=== PATIENT | male | born 1975 | race Caucasian/White ===

== ENCOUNTER 2022-09-22 21:56 | Inpatient (IN) | payer SELFPAY ==
[~2022-09-22] VITALS: Ht 172.7 cm; Wt 79.1 kg
[2022-09-22 22:22] LABS: MEAN CORPUSCULAR HEMOGLOBIN 31.5 PG (27.0-31.0); MEAN PLATELET VOLUME 7.7 FL (7.4-10.4)
[2022-09-22 22:24] LABS: BASOPHILS % (AUTO) 0.2 % (0-1); EOSINOPHILS % (AUTO) 0.3 % (0-6); HEMATOCRIT 45.6 % (42.0-52.0); HEMOGLOBIN 15.3 g/dl (14.0-17.9); LYMPHOCYTES % (AUTO) 12.1 % (21-51); MEAN CORPUSCULAR HGB CONC 33.6 g/dL (33.0-36.5); MEAN CORPUSCULAR VOLUME 93.7 FL (78-98); MONOCYTES # (AUTO) 2.2 X10'3 (0-0.9); MONOCYTES % (AUTO) 13.3 % (2-12); NEUTROPHILS # (AUTO) 12.4 X10'3 (1.8-7.7); NEUTROPHILS % (AUTO) 74.1 % (42-75); PLATELET COUNT 305 X10'3 (140-440); RED BLOOD COUNT 4.86 X10'6 (4.70-6.10); RED CELL DISTRIBUTION WIDTH 14.4 % (11.5-14.5); WHITE BLOOD COUNT 16.7 X10'3 (4.5-11.0)
[2022-09-22 22:36] LABS: ALANINE AMINOTRANSFERASE 33 U/L (12-78); ALBUMIN 4.5 G/DL (3.4-5.0); ALBUMIN/GLOBULIN RATIO 1.5 (1.1-1.5); ALKALINE PHOSPHATASE 86 IU/L (46-116); ANION GAP 19 (8-16); ASPARTATE AMINO TRANSFERASE 93 U/L (10-37); BILIRUBIN,TOTAL 0.8 MG/DL (0.1-1.0); BLOOD UREA NITROGEN 17 MG/DL (7-18); BUN/CREATININE RATIO 7.1 (10.0-20.0); CALCIUM 9.2 MG/DL (8.5-10.1); CHLORIDE 98 MMOL/L (99-107); CREATININE 2.41 MG/DL (0.60-1.10); GLUCOSE 102 MG/DL (70-104); POTASSIUM 3.9 MMOL/L (3.5-5.1); SODIUM 138 MMOL/L (135-145); TOTAL CARBON DIOXIDE 21.4 MMOL/L (24-32); TOTAL PROTEIN 7.5 G/DL (6.4-8.2); eGFR 29 ML/MIN
[2022-09-22] MEDS ORDERED: normal saline 1000ML IV soln IVB ONE (23:55)
[2022-09-23] MEDS ORDERED: aspirin 325mg tablet PO ONE
[2022-09-23 00:46] LABS: APTT 29 SECONDS (22-32)
[2022-09-23 00:54] LABS: MAGNESIUM 1.5 MG/DL (1.5-2.4)
[2022-09-23 00:55] LABS: CREATINE KINASE 5395 U/L (39-308)
[2022-09-23] MEDS ORDERED: normal saline 1000ML IV soln IVB ONE (01:30)
[2022-09-23] MEDS ORDERED: sodium bicarbonate (8.4%) 1 mEq/ml syringe IV ONE (01:30)
[2022-09-23] MEDS ORDERED: NO HOME MEDS (01:35)
[2022-09-23] MEDS ORDERED: sodium bicarbonate (8.4%) inj. 1 MEQ/ML ML IV ONE (02:00)
[2022-09-23] MEDS ORDERED: ondansetron/PF 4mg/2ml inj IV PRN (02:15)
[2022-09-23] MEDS ORDERED: acetaminophen 325mg tablet PO PRN (02:15)
[2022-09-23] MEDS ORDERED: magnesium hydroxide 30ml (MOM) UD suspension PO PRN (02:15)
[2022-09-23] MEDS ORDERED: mag hydrox/Alum hydrox/simeth 30ml oral suspension PO PRN (02:15)
[2022-09-23] MEDS ORDERED: SODIUM BICARB 150mEq/D5W 1L 1,000 ML IV SCH (02:30)
[2022-09-23 02:33] LABS: PHOSPHORUS 4.5 MG/DL (2.3-4.5)
[2022-09-23] MEDS: [UNRECOGNIZED DRUG - OTHER] IV SCH ×2 (03:53→16:36)
[2022-09-23] MEDS: SODIUM BICARB IV SCH ×2 (03:53→16:36)
[2022-09-23] MEDS: SODIUM BICARBONATE IV SCH ×2 (03:53→16:36)
[2022-09-23] MEDS ORDERED: normal saline 1000ml 1,000 ML IV ONE (03:55)
[2022-09-23 04:51] LABS: CLARITY,URINE CLEAR (Clear); COLOR,URINE YELLOW (Yellow); GLUCOSE, URINE NEGATIVE (Neg); KETONES,URINE 15 mg/dl (Neg); LEUKOCYTE ESTERASE ,URINE NEGATIVE (Neg); NITRITES, URINE NEGATIVE (Neg); OCCULT BLOOD,URINE NEGATIVE (Neg); PH,URINE 5.5 (4.8-8.0); PROTEIN,URINE TRACE mg/dl (Neg); UROBILINOGEN,URINE 0.2 E.U/dL (0.2-1.0)
[2022-09-23 04:57] LABS: UA COLLECTION TYPE CLN CATCH MIDSTREAM
[2022-09-23 04:58] LABS: HYALINE CASTS >30 /LPF (NEGATIVE)
[2022-09-23 04:59] LABS: CELLULAR CAST 0-4 /LPF (NEGATIVE); COARSE GRANULAR CAST 0-3 /LPF (NEGATIVE); MUCUS STRANDS MODERATE /LPF (Neg); SQUAMOUS EPITHELIAL CELL,UR FEW /LPF (FEW)
[2022-09-23 05:00] LABS: BACTERIA,URINE FEW /HPF (Neg); RBC,URINE 0-2 /HPF (0-2); TRANSITIONAL EPI CELLS,URINE FEW /HPF
--- NOTE | 2022-09-23 06:55 | NUR ---
RN ATTEMPTED TO CALL REPORT AND FLOOR RN IS STILL GETTING REPORT AND WILL CALL BACK FOR REPORT.
--- NOTE | 2022-09-23 07:19 | NUR ---
PAULINAAR TO JOVANA RANDOLPH. THIS RN WILL GO FOR BREAK AND CALL REPORT ONCE RTN.
--- NOTE | 2022-09-23 08:14 | NUR ---
Admitted to PCU nursing floor, Ambulatory, Alert, with intact IV access.
[2022-09-23 08:24] VITALS: BP 118/75
[2022-09-23] MEDS: docusate sod 100mg capsule PO SCH ×2 (10:02→20:00)
[2022-09-23] MEDS: HYDROcodone/acetaminophen 5mg/325mg tablet PO PRN ×2 (10:02→20:08)
[2022-09-23] MEDS: heparin, porcine 5000 units/ml vial SQ SCH ×2 (10:03→20:14)
[2022-09-23 10:21] LABS: BASOPHILS # (AUTO) 0.1 X10'3 (0-0.2); BASOPHILS % (AUTO) 0.7 % (0-1); EOSINOPHILS # (AUTO) 0.1 X10'3 (0-0.9); EOSINOPHILS % (AUTO) 1.6 % (0-6); HEMOGLOBIN 12.7 g/dl (14.0-17.9); LYMPHOCYTES # (AUTO) 2.4 X10'3 (1.1-4.8); LYMPHOCYTES % (AUTO) 27.9 % (21-51); MEAN CORPUSCULAR HEMOGLOBIN 31.5 PG (27.0-31.0); MEAN CORPUSCULAR HGB CONC 33.3 g/dL (33.0-36.5); MEAN CORPUSCULAR VOLUME 94.4 FL (78-98); MEAN PLATELET VOLUME 7.4 FL (7.4-10.4); MONOCYTES # (AUTO) 1.3 X10'3 (0-0.9); MONOCYTES % (AUTO) 14.9 % (2-12); NEUTROPHILS # (AUTO) 4.8 X10'3 (1.8-7.7); NEUTROPHILS % (AUTO) 54.9 % (42-75); PLATELET COUNT 242 X10'3 (140-440); RED BLOOD COUNT 4.02 X10'6 (4.70-6.10); RED CELL DISTRIBUTION WIDTH 14.3 % (11.5-14.5); WHITE BLOOD COUNT 8.7 X10'3 (4.5-11.0)
[2022-09-23 10:34] LABS: ALANINE AMINOTRANSFERASE 44 U/L (12-78); ALBUMIN 3.1 G/DL (3.4-5.0); ALBUMIN/GLOBULIN RATIO 1.3 (1.1-1.5); ALKALINE PHOSPHATASE 59 IU/L (46-116); ANION GAP 7 (8-16); ASPARTATE AMINO TRANSFERASE 155 U/L (10-37); BILIRUBIN,TOTAL 0.8 MG/DL (0.1-1.0); BLOOD UREA NITROGEN 13 MG/DL (7-18); BUN/CREATININE RATIO 10.4 (10.0-20.0); CALCIUM 7.7 MG/DL (8.5-10.1); CHLORIDE 108 MMOL/L (99-107); CREATININE 1.25 MG/DL (0.60-1.10); GLUCOSE 118 MG/DL (70-104); POTASSIUM 3.4 MMOL/L (3.5-5.1); SODIUM 142 MMOL/L (135-145); TOTAL PROTEIN 5.4 G/DL (6.4-8.2); eGFR 62 ML/MIN
[2022-09-23 11:00] VITALS: BP 118/80
[2022-09-23 11:15] LABS: CREATINE KINASE 6499 U/L (39-308)
--- NOTE | 2022-09-23 15:31 | NUR ---
Maura Kwong. visited to inform of possible suicidal ideation and a note that was left to inform he was not coming home and He was sorry. Call to Hospitalist with information on metal state, and history of bi-polar on medication for only one month before he discontinued the medication. Seen in the past at [facility] on [address].
--- NOTE | 2022-09-23 16:01 | NUR ---
[employer] is informed of mental health issue.
[2022-09-23] MEDS: nicotine 21mg patch - 24 hr TD SCH (16:36)
[2022-09-23 18:00] VITALS: BP 134/87
--- NOTE | 2022-09-23 18:42 | NUR ---
Patient in room PCU 3023. I have received report from TOMASA ZAMBRANO and had the opportunity to ask questions and assume patient care.
[2022-09-23 21:11] LABS: ALBUMIN 3.3 G/DL (3.4-5.0); ANION GAP 8 (8-16); BLOOD UREA NITROGEN 11 MG/DL (7-18); CALCIUM 8.3 MG/DL (8.5-10.1); CHLORIDE 106 MMOL/L (99-107); GLUCOSE 119 MG/DL (70-104); MAGNESIUM 1.7 MG/DL (1.5-2.4); POTASSIUM 3.3 MMOL/L (3.5-5.1); SODIUM 142 MMOL/L (135-145); TOTAL CARBON DIOXIDE 28.3 MMOL/L (24-32); eGFR 72 ML/MIN
[2022-09-23 22:00] VITALS: BP 116/73
[2022-09-24 02:00] VITALS: BP 126/71
[2022-09-24] MEDS: SODIUM BICARBONATE IV SCH (05:07)
[2022-09-24] MEDS: [UNRECOGNIZED DRUG - OTHER] IV SCH (05:07)
[2022-09-24] MEDS: SODIUM BICARB IV SCH (05:07)
[2022-09-24 06:00] VITALS: BP 104/64
--- NOTE | 2022-09-24 06:15 | NUR ---
Problems reprioritized. Patient report given, questions answered & plan of care reviewed with TOMASA Machado.
[2022-09-24 06:21] LABS: BASOPHILS # (AUTO) 0.1 X10'3 (0-0.2); BASOPHILS % (AUTO) 1.1 % (0-1); EOSINOPHILS # (AUTO) 0.2 X10'3 (0-0.9); EOSINOPHILS % (AUTO) 2.4 % (0-6); HEMATOCRIT 38.2 % (42.0-52.0); HEMOGLOBIN 12.6 g/dl (14.0-17.9); LYMPHOCYTES # (AUTO) 2.6 X10'3 (1.1-4.8); LYMPHOCYTES % (AUTO) 37.1 % (21-51); MEAN CORPUSCULAR HEMOGLOBIN 31.1 PG (27.0-31.0); MEAN CORPUSCULAR VOLUME 94.3 FL (78-98); MEAN PLATELET VOLUME 7.7 FL (7.4-10.4); MONOCYTES # (AUTO) 0.8 X10'3 (0-0.9); MONOCYTES % (AUTO) 11.6 % (2-12); NEUTROPHILS # (AUTO) 3.3 X10'3 (1.8-7.7); NEUTROPHILS % (AUTO) 47.8 % (42-75); PLATELET COUNT 233 X10'3 (140-440); RED BLOOD COUNT 4.06 X10'6 (4.70-6.10); RED CELL DISTRIBUTION WIDTH 14.7 % (11.5-14.5); WHITE BLOOD COUNT 6.9 X10'3 (4.5-11.0)
[2022-09-24 06:45] LABS: ALANINE AMINOTRANSFERASE 50 U/L (12-78); ALBUMIN/GLOBULIN RATIO 1.3 (1.1-1.5); ALKALINE PHOSPHATASE 59 IU/L (46-116); ANION GAP 7 (8-16); ASPARTATE AMINO TRANSFERASE 138 U/L (10-37); BILIRUBIN,TOTAL 0.5 MG/DL (0.1-1.0); BLOOD UREA NITROGEN 7 MG/DL (7-18); CALCIUM 8.3 MG/DL (8.5-10.1); CHLORIDE 106 MMOL/L (99-107); CREATININE 0.87 MG/DL (0.60-1.10); GLUCOSE 114 MG/DL (70-104); POTASSIUM 3.3 MMOL/L (3.5-5.1); SODIUM 142 MMOL/L (135-145); TOTAL CARBON DIOXIDE 29.3 MMOL/L (24-32); TOTAL PROTEIN 5.4 G/DL (6.4-8.2); eGFR > 90 ML/MIN
[2022-09-24] MEDS: nicotine 21mg patch - 24 hr TD SCH (08:07)
[2022-09-24] MEDS: docusate sod 100mg capsule PO SCH ×2 (08:08→19:32)
[2022-09-24] MEDS: heparin, porcine 5000 units/ml vial SQ SCH ×2 (08:09→19:33)
[2022-09-24] MEDS: HYDROcodone/acetaminophen 5mg/325mg tablet PO PRN ×2 (08:14→19:33)
[2022-09-24] MEDS ORDERED: potassium Cl 20 mEq SR tablet PO PRN (12:45)
[2022-09-24 13:13] VITALS: BP 130/85
[2022-09-24 15:00] VITALS: BP 133/79
--- NOTE | 2022-09-24 15:00 | NUR ---
Various messages to MD, and social service assistant from nursing. [facility] has called to report receipt of an incomplete packet missing tox screen, and medical release for Psych eval. Release is identified in MD notes take off worker is messaged regarding the incomplete items.
--- NOTE | 2022-09-24 17:28 | NUR ---
[facility] called: After receiving the packet and it is missing a tox screen, and Statement from the DR providing medical clearance.
[2022-09-24 18:00] VITALS: BP 133/88
[2022-09-24] MEDS: normal saline 1000ml 1,000 ML IV SCH ×2 (21:35→22:40)
[2022-09-24 22:00] VITALS: BP 137/80
[2022-09-25 00:13] LABS: URINE AMPHETAMINE SCREEN NEGATIVE (Neg); URINE BARBITUATE SCREEN NEGATIVE (Neg); URINE BENZODIAZEPINES SCREEN NEGATIVE (Neg); URINE CANNABINOID SCREEN POSITIVE (Neg); URINE COCAINE SCREEN NEGATIVE (Neg); URINE METHADONE SCREEN NEGATIVE (Neg); URINE OPIATE SCREEN NEGATIVE (Neg); URINE PHENCYCLIDINE SCREEN NEGATIVE (Neg)
[2022-09-25 02:00] VITALS: BP 128/73
[2022-09-25] MEDS: normal saline 1000ml 1,000 ML IV SCH ×2 (05:11→08:40)
--- NOTE | 2022-09-25 06:13 | NUR ---
Problems reprioritized. Patient report given, questions answered & plan of care reviewed with Jose RN and Robbie RN.
--- NOTE | 2022-09-25 06:30 | NUR ---
Patient in room PCU 3023. I have received report from Eusebia RANDOLPH and had the opportunity to ask questions and assume patient care.
[2022-09-25 06:37] LABS: BASOPHILS % (AUTO) 0.6 % (0-1); EOSINOPHILS # (AUTO) 0.2 X10'3 (0-0.9); EOSINOPHILS % (AUTO) 2.5 % (0-6); HEMATOCRIT 38.6 % (42.0-52.0); HEMOGLOBIN 13.1 g/dl (14.0-17.9); LYMPHOCYTES # (AUTO) 2.5 X10'3 (1.1-4.8); LYMPHOCYTES % (AUTO) 37.8 % (21-51); MEAN CORPUSCULAR HEMOGLOBIN 32.1 PG (27.0-31.0); MEAN CORPUSCULAR HGB CONC 33.9 g/dL (33.0-36.5); MEAN CORPUSCULAR VOLUME 94.9 FL (78-98); MEAN PLATELET VOLUME 7.9 FL (7.4-10.4); MONOCYTES # (AUTO) 0.9 X10'3 (0-0.9); MONOCYTES % (AUTO) 13.7 % (2-12); NEUTROPHILS % (AUTO) 45.4 % (42-75); PLATELET COUNT 218 X10'3 (140-440); RED BLOOD COUNT 4.07 X10'6 (4.70-6.10); RED CELL DISTRIBUTION WIDTH 14.4 % (11.5-14.5); WHITE BLOOD COUNT 6.6 X10'3 (4.5-11.0)
--- NOTE | 2022-09-25 06:39 | NUR ---
Patient in room PCU 3023. I have received report from ALVA RANDOLPH and had the opportunity to ask questions and assume patient care.
[2022-09-25 07:01] LABS: ALANINE AMINOTRANSFERASE 46 U/L (12-78); ALBUMIN/GLOBULIN RATIO 1.1 (1.1-1.5); ALKALINE PHOSPHATASE 67 IU/L (46-116); ANION GAP 9 (8-16); ASPARTATE AMINO TRANSFERASE 91 U/L (10-37); BILIRUBIN,TOTAL 0.4 MG/DL (0.1-1.0); BLOOD UREA NITROGEN 6 MG/DL (7-18); BUN/CREATININE RATIO 6.8 (10.0-20.0); CALCIUM 8.4 MG/DL (8.5-10.1); CHLORIDE 107 MMOL/L (99-107); CREATINE KINASE 2495 U/L (39-308); CREATININE 0.88 MG/DL (0.60-1.10); GLUCOSE 98 MG/DL (70-104); POTASSIUM 3.6 MMOL/L (3.5-5.1); SODIUM 142 MMOL/L (135-145); TOTAL CARBON DIOXIDE 26.1 MMOL/L (24-32); TOTAL PROTEIN 5.8 G/DL (6.4-8.2); eGFR > 90 ML/MIN
[2022-09-25] MEDS: docusate sod 100mg capsule PO SCH (08:45)
[2022-09-25] MEDS: nicotine 21mg patch - 24 hr TD SCH (08:45)
[2022-09-25] MEDS: heparin, porcine 5000 units/ml vial SQ SCH (08:46)
[2022-09-25] MEDS: HYDROcodone/acetaminophen 5mg/325mg tablet PO PRN (08:52)
[2022-09-25 11:51] VITALS: BP 113/85
--- NOTE | 2022-09-25 14:20 | NUR ---
PT. STABLE ALERT AND ORIENTATED FOR DISCHARGE, IV CANNULA WHOLE AND INTACT UPON REMOVAL, PT AND SPOUSE EDUCATED ON HYDRATION, WORSENING S/S OF CHEST PAIN, GOOD NUTRITION AND EXERCISE, AND TO FOLLOW UP WITH PRIMARY CARE PROVIDER. PT. LEFT SAFELY IN PRIVATE VEHICLE WITH SPOUSE.
--- NOTE | 2022-09-25 14:33 | NUR ---
[facility] documentation: I have reviewed all interventions, assessments performed and documented by Jose RANDOLPH. [facility] Medication Administration: For this medication-pass time frame, all medication were reviewed, dispensed, administered and documented per hospital policy by Jose RANDOLPH.
== END 2022-09-25 15:30 | disposition home or self-care (01) | DRG 558 ==
LOC: ER 21:56 → ED HOLD 09-23 02:15 → PCU 3S 09-23 08:05
PROVIDERS: ADMIT Internal Medicine; ATTEND Internal Medicine
DX: M62.82 Rhabdomyolysis (principal); E87.20 Acidosis, unspecified; N17.9 Acute kidney failure, unspecified; E87.6 Hypokalemia; R74.01 Elevation of levels of liver transaminase levels; F31.9 Bipolar disorder, unspecified; F17.200 Nicotine dependence, unspecified, uncomplicated
CPT/HCPCS: 36415; 71045; 80053; 80069; 80305; 81001; 82550; 83605; 83735; 83874; 83880; 84100; 84145; 84484; 85025; 85610; 85730; 87081; 87088; 93005; 99285; G0378; J1644; J3490; J7030; J7060